=== PATIENT | male | born 1965 | race Caucasian/White ===

== ENCOUNTER 2024-09-05 22:39 | Observation (INO) ==
[2024-09-05 22:55] VITALS: BMI 19.3
--- NOTE | 2024-09-05 22:59 | DR.HTN ---
HPI Time Seen Time Seen by Provider: 09/05/24 22:58 Primary Care Physician Primary Care Physician: [email or web address] HPI Comment HPI Comment: History as below. Complaints Chief Complaint Doctors Comments: Patient is 59yr old male in ER with right upper extremity numbness that started Chief Complaint:: pt states" I went to sleep at work and was laying over on my rt arm it feels numb I can't hardly move it and my blood pressure is high" COVID-19 Coronavirus risk:travel/contact w/high risk person: No Has patient experienced Coronavirus symptoms: No Reviewed Nurses Notes Reviewed: Yes Source History Provided: Patient Mode of Arrival Mode of Arrival: Ambulatory Timing Onset of Chief Complaint: 09/05/24 Severity What was the maximum recorded B/P?: 201/104 Context Treatment of HTN Prior to Arrival: Taking meds as prescribed Associated Signs and Symptoms HTN Associated Signs and Symptoms: None PMH PMH Past Medical History: Yes Past Medical History: Hypertension Past Medical History Comment: chronic neck and back pain Past Surgical History: Yes Surgical History: Cholecystectomy Family History History of Family Medical Conditions: Yes Family Medical History: Coronary Artery Disease and Hypertension Social History Does patient currently use any type of tobacco product: Yes Have you used tobacco products in the last 12 months: Yes Type of Tobacco Use: Cigarettes Does any household member use tobacco: Yes Alcohol Use: Occasionally Do you use any recreational Drugs:: No Lives With: Family Lives Where: Home Travel Risk Coronavirus risk:travel/contact w/high risk person: No Has patient experienced Coronavirus symptoms: No Infectious screening In the last 2 months have you had wt loss of >10#?: NO Have you had fever, night sweats or hemotysis?: No Have you traveled outside the country in the last 6 months?: No Isolation: Standard ROS Review of Systems Constitutional: No Symptoms Reported Eyes: No Symptoms Reported ENTM: No Symptoms Reported Respiratoy: No Symptoms Reported Cardiovascular: No Symptoms Reported Gastrointestinal/Abdominal: No Symptoms Reported Genitourinary: No Symptoms Reported Neurological: No Symptoms Reported Musculoskeletal: No Symptoms Reported Integumentary: No Symptoms Reported Hematologic/Lymphatic: No Symptoms Reported Endocrine: No Symptoms Reported Psychiatric: No Symptoms Reported All Other Systems: Reviewed and Negative PE Vital Signs Vitals: Vital Signs Temperature 98.1 F Pulse Rate 81 Pulse Rate 85 Pulse Rate 84 Pulse Rate 82 Pulse Rate 93 Pulse Rate 93 Pulse Rate 92 Pulse Rate 91 Pulse Rate 90 Pulse Rate 89 Respiratory Rate 30 Respiratory Rate 15 Respiratory Rate 14 Respiratory Rate 19 Respiratory Rate 39 Respiratory Rate 27 Respiratory Rate 16 Respiratory Rate 17 Respiratory Rate 18 Blood Pressure 179/91 Blood Pressure 170/105 Blood Pressure 171/99 Blood Pressure 181/105 Blood Pressure 201/104 Blood Pressure 201/104 O2 Sat by Pulse Oximetry 95 O2 Sat by Pulse Oximetry 95 O2 Sat by Pulse Oximetry 95 O2 Sat by Pulse Oximetry 94 O2 Sat by Pulse Oximetry 95 O2 Sat by Pulse Oximetry 94 General Limitations: No Limitations General Appearance: Alert and In No Apparent Distress Head Head Exam: Normal Inspection Eyes Eye exam: Normal Appearance Pupils: Regular, Round: Bilateral ENT ENT Exam: Normal Exam and Normal Oropharynx Neck Neck Exam: Normal Inspection Chest Chest Inspection: Normal Inspection Respiratory Respiratory Exam: Normal Lung Sounds Bilat Respiratory Exam: Bilateral: Clear to Auscultation Cardiovascular Cardiovascular Exam: Regular Rate, Normal Rhythm and Normal Heart Sounds; negative Systolic Murmur or Diastolic Murmur Abdominal Exam Abdominal Exam: Normal Inspection, Normal Bowel Sounds and Soft; negative Tenderness Extremities Extremities Exam: Normal Inspection and Normal Capillary Refill Back Back Exam: Normal Inspection; negative (R) CVA Tenderness or (L) CVA Tenderness Neurologic Neurological Exam: Alert and Oriented X3; negative Motor Sensory Deficit Patient Oriented To: Person, Place and Time Speech: Fluid Speech Cranial Nerve Exam: EOM Function (II, III, IV, ): Normal, Facial Sensation (V): Normal, Facial Palsy (VII): Normal, Gag reflex (XI): Normal, Spinal Accessory Function (XI): Normal and Tongue Deviation: Normal Psychiatric Psychiatric Exam: Normal Affect and Normal Mood Skin Skin Exam: Warm and Intact MDM Differential Diagnosis Differential Diagnosis: Hypertensive emergency (Nerve Compression, CVA, TIA.) ROR Labs Reviewed 09/05/24 23:02 09/05/24 23:02 Laboratory: WBC 7.3 X10^3/uL (3.6-10.0) 09/05/24 23:02 RBC 3.78 X10^6/uL (4.7-6.0) L 09/05/24 23:02 Hgb 12.7 g/dL (13.5-18.0) L 09/05/24 23:02 Hct 36.1 % (42.0-54.0) L 09/05/24 23:02 MCV 95.3 fL (80.0-100.0) 09/05/24 23:02 MCH 33.6 pg (27.0-34.0) 09/05/24 23:02 MCHC 35.2 g/dL (33.0-35.0) H 09/05/24 23:02 RDW 14.0 % (11.6-16.5) 09/05/24 23:02 Plt Count 263 X10^3/uL (150.0-450.0) 09/05/24 23:02 MPV 7.6 fL (7.4-11.0) 09/05/24 23:02 Neut % (Auto) 67.4 % (42.0-75.0) 09/05/24 23:02 Lymph % (Auto) 16.5 % (21.0-51.0) L 09/05/24 23:02 [place] % (Auto) 10.6 % (0.0-13.0) 09/05/24 23:02 Eos % (Auto) 4.5 % (0.9-2.9) H 09/05/24 23:02 Baso % (Auto) 1.0 % (0.2-1.0) 09/05/24 23:02 Neut # (Auto) 4.9 x10^3/uL (2.2-4.8) H 09/05/24 23:02 Lymph # (Auto) 1.2 X10^3/uL (1.3-2.9) L 09/05/24 23:02 [place] # (Auto) 0.8 x10^3/uL (0.3-0.8) 09/05/24 23:02 Eos # (Auto) 0.3 x10^3/uL (0.0-0.2) H 09/05/24 23:02 Baso # (Auto) 0.1 X10^3/uL (0.0-0.1) 09/05/24 23:02 Absolute Nucleated RBC 0.0 /100WBC 09/05/24 23:02 PT 12.5 SECONDS (11.8-14.3) 09/05/24 23:02 INR Target Range - 09/05/24 23:02 INR 0.95 (0.8-1.3) 09/05/24 23:02 APTT 59.7 SECONDS (22.9-36.5) H 09/05/24 23:02 PTT Comment - 09/05/24 23:02 Fibrinogen 573 mg/dL (239-489) H 09/05/24 23:02 Sodium 141 mmol/L (136-145) 09/05/24 23:02 Corrected Sodium TNP 09/05/24 23:02 Potassium 3.7 mmol/L (3.5-5.1) 09/05/24 23:02 Chloride 100 mmol/L (98-107) 09/05/24 23:02 Carbon Dioxide 31.4 mmol/L (21-32) 09/05/24 23:02 BUN 16 mg/dL (7-18) 09/05/24 23:02 Creatinine 0.94 mg/dL (0.70-1.30) 09/05/24 23:02 Est GFR (MDRD) Af Amer > 60 (>60) 09/05/24 23:02 Est GFR (MDRD) Non-Af > 60 (>60) 09/05/24 23:02 Glucose 96 mg/dL (65-99) 09/05/24 23:02 POC Glucose (mg/dL) 99 mg/dL (65-99) 09/05/24 23:30 Calcium 9.9 mg/dL (8.5-10.1) 09/05/24 23:02 Corrected Calcium TNP 09/05/24 23:02 Total Bilirubin 0.40 mg/dL (0.2-1.0) 09/05/24 23:02 AST 23 Units/L (15-37) 09/05/24 23:02 ALT 24 Units/L (12-78) 09/05/24 23:02 Alkaline Phosphatase 112 Units/L (46-116) 09/05/24 23:02 Creatine Kinase 131 Units/L (39-308) 09/05/24 23:02 Troponin I High Sens 9.6 ng/L (4.0-60.0) 09/05/24 23:02 Total Protein 8.0 g/dL (6.4-8.2) 09/05/24 23:02 Albumin 3.8 g/dL (3.4-5.0) 09/05/24 23:02 Globulin 4.2 g/dL (2.5-4.5) 09/05/24 23:02 Albumin/Globulin Ratio 0.9 Ratio (1.1-2.1) L 09/05/24 23:02 Specimen Type Clean catch urine 09/05/24 22:55 Urine Color Straw (YELLOW) 09/05/24 22:55 Urine Appearance Clear (CLEAR) 09/05/24 22:55 Urine pH 6.5 (5.0 - 8.0) 09/05/24 22:55 Ur Specific [place] 1.010 (1.000-1.030) 09/05/24 22:55 Urine Protein Negative (NEGATIVE) 09/05/24 22:55 Urine Glucose (UA) Negative (NEGATIVE) 09/05/24 22:55 Urine Ketones Negative (NEGATIVE) 09/05/24 22:55 Urine Blood Negative (NEGATIVE) 09/05/24 22:55 Urine Nitrite Negative (NEGATIVE) 09/05/24 22:55 Urine Bilirubin Negative (NEGATIVE) 09/05/24 22:55 Urine Urobilinogen Normal (NORMAL) 09/05/24 22:55 Ur Leukocyte Esterase Negative (NEGATIVE) 09/05/24 22:55 Urine Opiates Screen Negative (NEG=<300) 09/05/24 22:55 Urine Methadone Screen Negative (NEG=<300) 09/05/24 22:55 Ur Barbiturates Screen Negative (NEG=<200) 09/05/24 22:55 Ur Phencyclidine Scrn Negative (NEG=<25) 09/05/24 22:55 Ur Amphetamines Screen Negative (NEG=<1000) 09/05/24 22:55 U Benzodiazepines Scrn Negative (NEG=<200) 09/05/24 22:55 Urine Cocaine Screen Negative (NEG=<300) 09/05/24 22:55 U Marijuana (THC) Screen Negative (NEG=<50) 09/05/24 22:55 Blood Type B NEGATIVE 09/05/24 23:44 Antibody Screen Negative 09/05/24 23:40 Opioid Opioid Risk Tool Age (Bill box if 16-45): No History of Preadolescent Sexual Abuse: No Total: 0 Total Score Risk Category: Low Risk Copyright: Bam ARNDT predicting aberrant behaviors Discharge Plan Diagnosis Discharge Problem: Brain TIA, Paresthesia of skin, Nerve root compression syndrome, Hypertension Discharge Plan Patient Disposition: ADMITTED INPATIENT Condition: Stable
[2024-09-05 23:14] LABS: BASOPHILS # (AUTO) 0.1 X10^3/uL (0.0-0.1); EOSINOPHILS # (AUTO) 0.3 x10^3/uL (0.0-0.2); EOSINOPHILS % (AUTO) 4.5 % (0.9-2.9); HEMATOCRIT 36.1 % (42.0-54.0); HEMOGLOBIN 12.7 g/dL (13.5-18.0); LYMPHOCYTES # (AUTO) 1.2 X10^3/uL (1.3-2.9); LYMPHOCYTES % (AUTO) 16.5 % (21.0-51.0); MEAN CORPUSCULAR HEMOGLOBIN 33.6 pg (27.0-34.0); MEAN CORPUSCULAR HGB CONC 35.2 g/dL (33.0-35.0); MEAN CORPUSCULAR VOLUME 95.3 fL (80.0-100.0); MEAN PLATELET VOLUME 7.6 fL (7.4-11.0); MONOCYTES # (AUTO) 0.8 x10^3/uL (0.3-0.8); MONOCYTES % (AUTO) 10.6 % (0.0-13.0); NEUTROPHILS # (AUTO) 4.9 x10^3/uL (2.2-4.8); NEUTROPHILS % (AUTO) 67.4 % (42.0-75.0); PLATELET COUNT 263 X10^3/uL (150.0-450.0); RED BLOOD COUNT 3.78 X10^6/uL (4.7-6.0); WHITE BLOOD COUNT 7.3 X10^3/uL (3.6-10.0)
[2024-09-05 23:20] LABS: APPEARANCE,URINE CLEAR (CLEAR); BILIRUBIN,URINE NEGATIVE (NEGATIVE); BLOOD/HEMOGLOBIN,URINE NEGATIVE (NEGATIVE); COLOR,URINE STRAW (YELLOW); GLUCOSE, URINE NEGATIVE (NEGATIVE); KETONES,URINE NEGATIVE (NEGATIVE); LEUKOCYTE ESTERASE ,URINE NEGATIVE (NEGATIVE); NITRITES,URINE NEGATIVE (NEGATIVE); PH,URINE 6.5 (5.0 - 8.0); PROTEIN,URINE NEGATIVE (NEGATIVE); UROBILINOGEN,URINE NORMAL (NORMAL)
[2024-09-05 23:27] LABS: INR 0.95 (0.8-1.3)
[2024-09-05 23:36] LABS: ALANINE AMINOTRANSFERASE 24 Units/L (12-78); ALBUMIN 3.8 g/dL (3.4-5.0); ALKALINE PHOSPHATASE 112 Units/L (46-116); ASPARTATE AMINO TRANSFERASE 23 Units/L (15-37); BLOOD UREA NITROGEN 16 mg/dL (7-18); CALCIUM 9.9 mg/dL (8.5-10.1); CARBON DIOXIDE 31.4 mmol/L (21-32); CHLORIDE 100 mmol/L (98-107); CREATINE KINASE 131 Units/L (39-308); CREATININE 0.94 mg/dL (0.70-1.30); GLUCOSE 96 mg/dL (65-99); POTASSIUM 3.7 mmol/L (3.5-5.1); SODIUM 141 mmol/L (136-145); eGFR NON BLACK RACES > 60 (>60)
--- NOTE | 2024-09-05 23:36 | CT ---
EXAM:BRAIN W/O CONHISTORY:ELEVATED BLOOD PRESSURE; STATES THAT THE PATIENT ISN'T TALKING NORMALCOMPARISON:None.TECHNIQUE:Axial non-contrast images of the head with coronal and sagittal reformats.Radiation dose: 870.14 mGy-cm total DLPFINDINGS:No abnormal areas of acute attenuation in the brain parenchyma.Higgins-white differentiation remains intact.No intracranial, extra-axial, fluid collection.No hemorrhage.No mass, mass effect or midline shift.No ventriculomegaly.No acute fracture.Sinuses are well aerated.Mastoid air cells are well aerated.Globes and intraorbital contents are unremarkable.IMPRESSION:No acute intracranial abnormality identified.THIS IS AN ELECTRONICALLY VERIFIED FINAL REPORT09/05/2024 11:33 PM - Electronically signed by Tano Gipson MD
--- NOTE | 2024-09-05 23:48 | EKG ---
Test Reason : elevated bp Blood Pressure : */* mmHG Vent. Rate : 90 BPM Atrial Rate : 90 BPM P-R Int : 150 ms QRS Dur : 92 ms QT Int : 354 ms P-R-T Axes : 66 59 58 degrees QTc Int : 433 ms Normal sinus rhythm Minimal voltage criteria for LVH, may be normal variant ( Sokolow-Peres ) Cannot rule out Anterior infarct , age undetermined Abnormal ECG No previous ECGs available Confirmed by Blake Groves MD ([id number]) on 09/06/2024 7:33:11 AM Referred By: Confirmed By: Blake Groves MD
--- NOTE | 2024-09-05 23:52 | TELESTROKE ---
[facility] Consult Date of Consult Date of Exam: 09/05/24 Time of Arrival to the ED: 23:30 Allergies Allergies Allergy/AdvReac Type Severity Reaction Status Date / Time COLLEEN Inhibitors Allergy Unknown Rash; Verified 01/01/24 08:42 Swelling; Hives Vital Signs Vital Signs: Temp Pulse Resp BP Pulse Ox O2 Del Method 09/05/24 22:40 98.1 F 89 18 201/104 94 L Room Air 09/03/24 13:37 161/111 History of Present Illness History of Present Illness: [facility] Patient Name:shahriar fong Date of :1965 Identification Number: Date of Service:09/05/2024 23:25:31 Diagnosis:R20.2 - Paresthesia of skin Impression: This consult was conducted in real-time using interactive audio and video technology. Patient was informed of the technology being used for this visit and agreed to proceed. Patient located in hospital and provider located at home/office setting. This is a 59 year old M with HTN who presents to [place], [place] for complaints of sensory decrease of right arm. The patient reported falling asleep in his car while at work at 19:30 earlier that evening (about 4 hours and 5 minutes ago), during which time he says he was was leaning with his right arm pressed against an object. He endorsed being in his usual state of health prior to falling asleep. Upon awakening the patient noted that his right arm felt heavy, numb, and difficult to move. However, he reported gradual improvement in these symptoms over time. At the time of my exam, he only has mild subjective tingling sensation in his right hand. The patient denied any issues with his leg or face and had no other complaints. On objective examination, the patient's NIHSS is 0. Of note, patient's blood pressure was elevated at 201/104 mmHg during his emergency department visit. with the localization to only arm, the slow improvement, and the report of sleeping against the arm, nerve compression (brachial plexus or other) is highly suggested. However, with his very high blood pressure, small stroke / resolving TIA is on the differential too. With his improvement of symptoms and minimal/no symptoms suspected to be nondisabling, he is not likely to be a strong tPA/TNK candidate. I had a discussion with the patient to gauge her thoughts on this. I had a discussion regarding thrombolytics (tPA/TNK). The risks, including possible hemorrhage and , and the possible benefits were discussed. he expressed understanding. He demonstrated good decision making capacity. He agreed that at this time his current symptoms are non-disabling or not disabling enough to want the possible risk of thrombolytics, especially in the setting of such rapid improvement, and opted instead for more conservative approach with additional testing etc, as below. Thrombolytics were not administered. Recommen dations below. Recommendations: Neuro Checks Head of Bed 30 Degrees Euglycemia and Avoid Hyperthermia (PRN Acetaminophen) Systolic BP cap <180 Aspirin 325 mg once now, then 81 mg daily for now. Atorvastatin 40 mg daily. Brain MRI without contrast (routine, diagnostic). If a small acute/subacute stroke is seen on MRI brain, without hemorrhage, also give 300 mg clopidogrel one time, followed by 21 days of clopidogrel 75 mg daily. If an acute or subacute embolic-appearing stroke (i.e. not lacunar) is se en on MRI brain, obtain TTE in hospital and Holter monitor on discharge. If no acute stroke is seen on MRI brain, or lacunar stroke is seen, these tests are not needed. HbA1C, Lipid Panel, TSH. Lifestyle Modifications: Weight management (goal healthy BMI), smoking cessation if smoker, Mediterranean diet, exercise (moderate intensive aerobic exercise at least 3 days of the week for 20-60 minutes at a time per AHA guidelines, or as tolerated), active lifestyle, outpatient goal normotension, outpatient goal LDL <70. PCP to assist with these modifications and goals. Advanced Imaging: CTA Deferred because: Current physical exam at the time of my assessment is not highly suggestive of an acute surgically intervenable large vessel occlusion. Should the physical exam worsen in the future, please reconsider advanced imaging and also urgently notify [facility], the neurology team, and/or call a new Stroke Alert. Metrics: Last Known Well: 09/05/2024 19:30:00 Dispatch Time: 09/05/2024 23:25:31 Arrival Time: 09/05/2024 22:58:00 Initial Response Time: 09/05/2024 23:28:45Symptoms: sensory decrease of right arm . Initial patient interaction: 09/05/2024 23:30:02 NIHSS Assessment Completed: 09/05/2024 23:36:00Patient is not a candidate for Thrombolytic. Thrombolytic Medical Decision: 09/05/2024 23:36:00Patient was not deemed candidate for Thrombolytic because of following reasons: Resolved symptoms . Stroke severity too mild (non-disabling) . I personally Reviewed the CT Head and it Showed no hemorrhage . Primary Provider Notified of Diagnostic Impression and Management Plan on: 09/05/2024 23:50:59 History of Present Illness:Patient is a 59 year old Male. Patient was brought by private transportation with symptoms of sensory decrease of right arm . This consult was conducted in real-time using interactive audio and video technology. Patient was informed of the technology being used for this visit and agreed to proceed. Patient located in hospital and provider located at home/office setting. This is a 59 year old M with HTN who presents to [place], [place] for complaints of sensory decrease of right arm. The patient reported falling asleep in his car while at work at 19:30 earlier that evening (about 4 hours and 5 minutes ago), during which time he says he was was leaning with his right arm pressed against an object. He endorsed being in his usual state of health prior to falling asleep. Upon awakening the patient noted that his right arm felt heavy, numb, and difficult to move. However, he reported gradual improvement in these symptoms over time. At the time of my exam, he only has mild subjective tingling sensation in his right hand. The patient denied any issues with his leg or face and had no other complaints. On objective examination, the patient's NIHSS is 0. Of note, patient's blood pressure was elevated at 201/104 mmHg during his emergency department visit. Past Medical History: Other PMH: HTN Medications: No Anticoagulant use No Antiplatelet use Reviewed EMR for current medications Allergies: Reviewed Social History: Drug Use: No Family History: There is no family history of premature cerebrovascular disease pertinent to this consultation ROS : 14 Points Review of Systems was performed and was negative except mentioned in HPI. Past Surgical History: There Is No Surgical History Contributory To Todays Visit Examination: BP(201/104),Pulse(75), 1A: Level of Consciousness - Alert; keenly responsive+ 0 1B: Ask Month and Age - Both Questions Right+ 0 1C: Blink Eyes & Squeeze Hands - Performs Both Tasks+ 0 2: Test Horizontal Extraocular Movements - Normal+ 0 3: Test Visual Moreno - No Visual Loss+ 0 4: Test Facial Palsy (Use Grimace if Obtunded) - Normal symmetry+ 0 5A: Test Left Arm Motor Drift - No Drift for 10 Seconds+ 0 5B: Test Right Arm Motor Drift - No Drift for 10 Seconds+ 0 6A: Test Left Leg Motor Drift - No Drift for 5 Seconds+ 0 6B: Test Right Leg Motor Drift - No Drift for 5 Seconds+ 0 7: Test Limb Ataxia (FNF/Heel-Powell) - No Ataxia+ 0 8: Test Sensation - Normal; No sensory loss+ 0 9: Test Language/Aphasia - Normal; No aphasia+ 0 10: Test Dysarthria - Normal+ 0 11: Test Extinction/Inattention - No abnormality+ 0 NIHSS Score:0 NIHSS Free Text :subjectively improving Pre-Morbid Modified Niels Scale:0 Points = No symptoms at all Spoke with :ed provider This consult was conducted in real time using interactive audio and video technology. Patient was informed of the technology being used for this visit and agreed to proceed. Patient located in hospital and provider located at [facility] e/office setting. Patient is being evaluated for possible acute neurologic impairment and high probability of imminent or life-threatening deterioration. I spent total of 45 minutes providing care to this patient, including time for face to face visit via telemedicine, review of medical records, imaging studies and discussion of findings with providers, the patient and/or family. Dr Alvin Cortez [facility] For Inpatient follow-up with [facility] physician please call [facility] at [phone]. As we are not an outpatient service for any post hospital discharge needs please contact the hospital for assistance. If you have any questions for the [facility] physicians or need to reconsult for clinical or diagnostic changes please contact us via [facility] at . Medical Decision Making 09/05/24 23:02 09/05/24 23:02 Labs: Laboratory Results - last 24 hr 09/05/24 09/05/24 09/05/24 22:55 23:02 23:30 WBC 7.3 RBC 3.78 L Hgb 12.7 L Hct 36.1 L MCV 95.3 MCH 33.6 MCHC 35.2 H RDW 14.0 Plt Count 263 MPV 7.6 Neut % (Auto) 67.4 Lymph % (Auto) 16.5 L [place] % (Auto) 10.6 Eos % (Auto) 4.5 H Baso % (Auto) 1.0 Neut # (Auto) 4.9 H Lymph # (Auto) 1.2 L [place] # (Auto) 0.8 Eos # (Auto) 0.3 H Baso # (Auto) 0.1 Absolute Nucleated RBC 0.0 PT 12.5 INR Target Range - INR 0.95 APTT 59.7 H PTT Comment - Fibrinogen 573 H Sodium 141 Corrected Sodium TNP Potassium 3.7 Chloride 100 Carbon Dioxide 31.4 BUN 16 Creatinine 0.94 Est GFR (MDRD) Af Amer > 60 Est GFR (MDRD) Non-Af > 60 Glucose 96 POC Glucose (mg/dL) 99 Calcium 9.9 Corrected Calcium TNP Total Bilirubin 0.40 AST 23 ALT 24 Alkaline Phosphatase 112 Creatine Kinase 131 Troponin I High Sens 9.6 Total Protein 8.0 Albumin 3.8 Globulin 4.2 Albumin/Globulin Ratio 0.9 L Specimen Type Clean catch urine Urine Color Straw Urine Appearance Clear Urine pH 6.5 Ur Specific [place] 1.010 Urine Protein Negative Urine Glucose (UA) Negative Urine Ketones Negative Urine Blood Negative Urine Nitrite Negative Urine Bilirubin Negative Urine Urobilinogen Normal Ur Leukocyte Esterase Negative Urine Opiates Screen Negative Urine Methadone Screen Negative Ur Barbiturates Screen Negative Ur Phencyclidine Scrn Negative Ur Amphetamines Screen Negative U Benzodiazepines Scrn Negative Urine Cocaine Screen Negative U Marijuana (THC) Screen Negative
[2024-09-05] MEDS ORDERED: APRESOLINE INJ 20 MG VIAL IVP ONE (23:58)
[2024-09-06] MEDS: ASPIRIN PO ONE (00:09)
[2024-09-06 03:17] LABS: TSH (3RD GENERATION) 0.81 uIU/mL (0.358-3.74)
[2024-09-06 03:23] LABS: HEMOGLOBIN A1C 5.5 %
[2024-09-06 05:43] LABS: BASOPHILS # (AUTO) 0.1 X10^3/uL (0.0-0.1); BASOPHILS % (AUTO) 1.6 % (0.2-1.0); EOSINOPHILS # (AUTO) 0.2 x10^3/uL (0.0-0.2); EOSINOPHILS % (AUTO) 3.4 % (0.9-2.9); HEMATOCRIT 33.7 % (42.0-54.0); HEMOGLOBIN 11.7 g/dL (13.5-18.0); LYMPHOCYTES # (AUTO) 1.2 X10^3/uL (1.3-2.9); LYMPHOCYTES % (AUTO) 21.8 % (21.0-51.0); MEAN CORPUSCULAR HEMOGLOBIN 33.4 pg (27.0-34.0); MEAN CORPUSCULAR HGB CONC 34.8 g/dL (33.0-35.0); MEAN PLATELET VOLUME 7.9 fL (7.4-11.0); MONOCYTES # (AUTO) 0.6 x10^3/uL (0.3-0.8); MONOCYTES % (AUTO) 11.4 % (0.0-13.0); NEUTROPHILS # (AUTO) 3.3 x10^3/uL (2.2-4.8); NEUTROPHILS % (AUTO) 61.8 % (42.0-75.0); PLATELET COUNT 257 X10^3/uL (150.0-450.0); RED BLOOD COUNT 3.51 X10^6/uL (4.7-6.0); RED CELL DISTRIBUTION WIDTH 13.9 % (11.6-16.5); WHITE BLOOD COUNT 5.4 X10^3/uL (3.6-10.0)
[2024-09-06 06:07] LABS: ALANINE AMINOTRANSFERASE 21 Units/L (12-78); ALBUMIN 3.4 g/dL (3.4-5.0); ALKALINE PHOSPHATASE 101 Units/L (46-116); ASPARTATE AMINO TRANSFERASE 21 Units/L (15-37); BLOOD UREA NITROGEN 14 mg/dL (7-18); CALCIUM 9.6 mg/dL (8.5-10.1); CARBON DIOXIDE 30.1 mmol/L (21-32); CHLORIDE 101 mmol/L (98-107); CHOL/HDL RATIO 2.6 (0.0-5.0); CHOLESTEROL 150 mg/dL (0-200); CREATININE 0.81 mg/dL (0.70-1.30); GLUCOSE 83 mg/dL (65-99); HDL CHOLESTEROL 58 mg/dL (40-60); MAGNESIUM 1.7 mg/dL (2.0-2.9); POTASSIUM 3.6 mmol/L (3.5-5.1); SODIUM 140 mmol/L (136-145); TOTAL PROTEIN 7.3 g/dL (6.4-8.2); TRIGLYCERIDES 37 mg/dL (0-150); eGFR NON BLACK RACES > 60 (>60)
[2024-09-06] MEDS ORDERED: CONSULT PHARMACY - POTASSIUM & MAGNESIUM XX SCH (07:00)
[2024-09-06] MEDS: NORCO 5/325 MG TAB PO PRN (07:43)
[2024-09-06] MEDS: LIPITOR TAB 40 MG PO SCH (08:29)
[2024-09-06] MEDS: K-DUR TAB 20 MEQ PO SCH (08:29)
[2024-09-06] MEDS: ASPIRIN EC 81 MG PO SCH (08:29)
[2024-09-06] MEDS: MAG-OX TAB PO SCH (08:29)
[2024-09-06] MEDS ORDERED: ASPIRIN PO SCH (09:00)
[2024-09-06] MEDS: PROCARDIA XL 24-HR PO SCH (10:07)
[2024-09-06] MEDS: TOPROL XL PO SCH (10:07)
[2024-09-06] MEDS: PROTONIX TAB 40 MG PO SCH (10:08)
[2024-09-06] MEDS: TOPROL XL PO ONE (11:24)
--- NOTE | 2024-09-06 11:40 | DR.H&P ---
H&P History & Physical for Day of: H&P Date: 09/06/24 Chief Complaint Chief Complaint: right arm weakness, nausea History of Present Illness History of Present Illness: Mr Gonzalez is a 59y/o male with a PMH of HTN, GERD and chronic pain presented with right arm weakness and numbness. His sx started last night around 8 pm after he woke up and noticed his right arm was weak. He did sleep on that arm. He was already having nausea prior to that. He does not check his BP but it tends to be elevated. Er work up included tele-stroke consult, CT- brain was negative. UA (-) UDS (-) Labs showed low K and Mag. His RUE weakness has improved. Neurology recommended MRI-brain and asa/statin. Patient was admitted for further management. 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 He does report right shoulder pain. Denies any falls. Labs/imaging reviewed: -WBC 5.4 Hgb 11.7 K 3.6 Mag 1.7 Cr 0.81 TSH/A1C/Lipid panel wnl -UA neg UDS neg -CT-brain: no acute changes Plan: admit to med surg with telemetry, continue asa/statin. MRI-brain pending. Continue neuro-checks. Order shoulder XR. Replace electrolytes as per protocol. Resume home medications. Monitor BP. Monitor AM labs/imaging. Past Medical History Past Medical History: Hypertension Past Surgical History Surgical History: Cholecystectomy Family History Family Medical History: Diabetes Mellitus, Cancer, [place] and Hypertension Social History Does patient currently use any type of tobacco product: Yes Have you used tobacco products in the last 12 months: Yes Type of Tobacco Use: Cigarettes How many years tobacco product used: 40 Does any household member use tobacco: No Alcohol Use: Rarely Drug Use: None Allergies Allergies Allergy/AdvReac Type Severity Reaction Status Date / Time COLLEEN Inhibitors Allergy Unknown Rash; Verified 01/01/24 08:42 Swelling; Hives Labs 09/06/24 05:00 09/06/24 05:00 Labs: Laboratory WBC 5.4 X10^3/uL (3.6-10.0) 09/06/24 05:00 RBC 3.51 X10^6/uL (4.7-6.0) L 09/06/24 05:00 Hgb 11.7 g/dL (13.5-18.0) L 09/06/24 05:00 Hct 33.7 % (42.0-54.0) L 09/06/24 05:00 MCV 96.0 fL (80.0-100.0) 09/06/24 05:00 MCH 33.4 pg (27.0-34.0) 09/06/24 05:00 MCHC 34.8 g/dL (33.0-35.0) 09/06/24 05:00 RDW 13.9 % (11.6-16.5) 09/06/24 05:00 Plt Count 257 X10^3/uL (150.0-450.0) 09/06/24 05:00 MPV 7.9 fL (7.4-11.0) 09/06/24 05:00 Neut % (Auto) 61.8 % (42.0-75.0) 09/06/24 05:00 Lymph % (Auto) 21.8 % (21.0-51.0) 09/06/24 05:00 [place] % (Auto) 11.4 % (0.0-13.0) 09/06/24 05:00 Eos % (Auto) 3.4 % (0.9-2.9) H 09/06/24 05:00 Baso % (Auto) 1.6 % (0.2-1.0) H 09/06/24 05:00 Neut # (Auto) 3.3 x10^3/uL (2.2-4.8) 09/06/24 05:00 Lymph # (Auto) 1.2 X10^3/uL (1.3-2.9) L 09/06/24 05:00 [place] # (Auto) 0.6 x10^3/uL (0.3-0.8) 09/06/24 05:00 Eos # (Auto) 0.2 x10^3/uL (0.0-0.2) 09/06/24 05:00 Baso # (Auto) 0.1 X10^3/uL (0.0-0.1) 09/06/24 05:00 Absolute Nucleated RBC 0.0 /100WBC 09/06/24 05:00 PT 12.5 SECONDS (11.8-14.3) 09/05/24 23:02 INR Target Range - 09/05/24 23:02 INR 0.95 (0.8-1.3) 09/05/24 23:02 APTT 59.7 SECONDS (22.9-36.5) H 09/05/24 23:02 PTT Comment - 09/05/24 23:02 Fibrinogen 573 mg/dL (239-489) H 09/05/24 23:02 Sodium 140 mmol/L (136-145) 09/06/24 05:00 Corrected Sodium TNP 09/06/24 05:00 Potassium 3.6 mmol/L (3.5-5.1) 09/06/24 05:00 Chloride 101 mmol/L (98-107) 09/06/24 05:00 Carbon Dioxide 30.1 mmol/L (21-32) 09/06/24 05:00 BUN 14 mg/dL (7-18) 09/06/24 05:00 Creatinine 0.81 mg/dL (0.70-1.30) 09/06/24 05:00 Est GFR (MDRD) Af Amer > 60 (>60) 09/06/24 05:00 Est GFR (MDRD) Non-Af > 60 (>60) 09/06/24 05:00 Glucose 83 mg/dL (65-99) 09/06/24 05:00 POC Glucose (mg/dL) 99 mg/dL (65-99) 09/05/24 23:30 Hemoglobin A1c 5.5 % 09/05/24 23:02 Calcium 9.6 mg/dL (8.5-10.1) 09/06/24 05:00 Corrected Calcium TNP 09/06/24 05:00 Magnesium 1.7 mg/dL (2.0-2.9) L 09/06/24 05:00 Total Bilirubin 0.30 mg/dL (0.2-1.0) 09/06/24 05:00 AST 21 Units/L (15-37) 09/06/24 05:00 ALT 21 Units/L (12-78) 09/06/24 05:00 Alkaline Phosphatase 101 Units/L (46-116) 09/06/24 05:00 Creatine Kinase 131 Units/L (39-308) 09/05/24 23:02 Troponin I High Sens 9.6 ng/L (4.0-60.0) 09/05/24 23:02 Total Protein 7.3 g/dL (6.4-8.2) 09/06/24 05:00 Albumin 3.4 g/dL (3.4-5.0) 09/06/24 05:00 Globulin 3.9 g/dL (2.5-4.5) 09/06/24 05:00 Albumin/Globulin Ratio 0.9 Ratio (1.1-2.1) L 09/06/24 05:00 Triglycerides 37 mg/dL (0-150) 09/06/24 05:00 Cholesterol 150 mg/dL (0-200) 09/06/24 05:00 LDL Cholesterol, Calc 85 mg/dL (0-100) 09/06/24 05:00 HDL Cholesterol 58 mg/dL (40-60) 09/06/24 05:00 Cholesterol/HDL Ratio 2.6 (0.0-5.0) 09/06/24 05:00 TSH 3rd Generation 0.810 uIU/mL (0.358-3.74) 09/05/24 23:02 Specimen Type Clean catch urine 09/05/24 22:55 Urine Color Straw (YELLOW) 09/05/24 22:55 Urine Appearance Clear (CLEAR) 09/05/24 22:55 Urine pH 6.5 (5.0 - 8.0) 09/05/24 22:55 Ur Specific [place] 1.010 (1.000-1.030) 09/05/24 22:55 Urine Protein Negative (NEGATIVE) 09/05/24 22:55 Urine Glucose (UA) Negative (NEGATIVE) 09/05/24 22:55 Urine Ketones Negative (NEGATIVE) 09/05/24 22:55 Urine Blood Negative (NEGATIVE) 09/05/24 22:55 Urine Nitrite Negative (NEGATIVE) 09/05/24 22:55 Urine Bilirubin Negative (NEGATIVE) 09/05/24 22:55 Urine Urobilinogen Normal (NORMAL) 09/05/24 22:55 Ur Leukocyte Esterase Negative (NEGATIVE) 09/05/24 22:55 Urine Opiates Screen Negative (NEG=<300) 09/05/24 22:55 Urine Methadone Screen Negative (NEG=<300) 09/05/24 22:55 Ur Barbiturates Screen Negative (NEG=<200) 09/05/24 22:55 Ur Phencyclidine Scrn Negative (NEG=<25) 09/05/24 22:55 Ur Amphetamines Screen Negative (NEG=<1000) 09/05/24 22:55 U Benzodiazepines Scrn Negative (NEG=<200) 09/05/24 22:55 Urine Cocaine Screen Negative (NEG=<300) 09/05/24 22:55 U Marijuana (THC) Screen Negative (NEG=<50) 09/05/24 22:55 Blood Type B NEGATIVE 09/05/24 23:44 Antibody Screen Negative 09/05/24 23:40 Review of Systems Constitutional: No Symptoms Reported Eyes: No Symptoms Reported ENT: No Symptoms Reported Respiratory: No Symptoms Reported Cardiovascular: No Symptoms Reported Gastrointestinal: Nausea Genitourinary: No Symptoms Reported Musculoskeletal: Shoulder Pain and Arm Pain Skin: No Symptoms Reported Neurological: No Symptoms Reported Physical Exam Vital Signs: Vital Signs Temperature 98.7 F Pulse Rate [Right Brachial] 81 Respiratory Rate 18 Respiratory Rate 18 Respiratory Rate 18 Blood Pressure [Right Arm] 176/92 O2 Sat by Pulse Oximetry 94 Oriented: Normal Eyes: Normal Ear: Normal Throat: Normal Respiratory: Clear Throughout Cardiovascular: Normal Auscultation: Bowel Sounds: Normal Palpation: Normal Tenderness: Normal Skin: Normal Musculoskeletal: Right, Shoulder, Arm and Motor Deficit Psychiatric: Normal Mood Description: Calm Affect: Normal Speech Pattern: Clear and Appropriate Assessment/Plan (1) Brain TIA: Status: Acute (2) Nerve root compression syndrome: Status: Acute (3) Hypomagnesemia: Status: Acute (4) Hypertension: Qualifiers: Hypertension type: primary hypertension Qualified Code(s): I10 - Essential (primary) hypertension Status: Chronic (5) Gastroesophageal reflux disease: Qualifiers: Esophagitis presence: esophagitis presence not specified Qualified Code(s): K21.9 - Gastro-esophageal reflux disease without esophagitis Status: Chronic (6) Multilevel degenerative disc disease: Status: Chronic Review H&P Reviewed: Yes Patient was examined?: Yes
[2024-09-06] MEDS: MAGNESIUM SULFATE 1 GRAM/100 mL PREMIX 1 G/100 ML BAG IV ONE (12:54)
--- NOTE | 2024-09-06 13:16 | RAD ---
PROCEDURE: Chest X-ray 1 View. HISTORY: ELEVATED BLOOD PRESSURE; . TECHNIQUE: AP view. COMPARISON: None . TECHNICAL QUALITY: Satisfactory. FINDINGS: Normal size heart. Mediastinum and hilar regions show no masses or lymphadenopathy. Normal central vascularity. No pulmonary consolidation, masses, pleural fluid, or pneumothorax. No acute bony abnormality. IMPRESSION: No evidence of active cardiopulmonary disease. THIS IS AN ELECTRONICALLY VERIFIED FINAL REPORT 09/06/2024 1:13 PM - Electronically signed by Allen Raya MD
[2024-09-06] MEDS: NICOTINE PATCH TD SCH (13:20)
[2024-09-07 06:02] LABS: BASOPHILS % (AUTO) 0.9 % (0.2-1.0); EOSINOPHILS # (AUTO) 0.2 x10^3/uL (0.0-0.2); HEMATOCRIT 33.9 % (42.0-54.0); HEMOGLOBIN 11.8 g/dL (13.5-18.0); LYMPHOCYTES # (AUTO) 1.3 X10^3/uL (1.3-2.9); LYMPHOCYTES % (AUTO) 26.6 % (21.0-51.0); MEAN CORPUSCULAR HEMOGLOBIN 33.3 pg (27.0-34.0); MEAN CORPUSCULAR HGB CONC 34.8 g/dL (33.0-35.0); MEAN CORPUSCULAR VOLUME 95.7 fL (80.0-100.0); MEAN PLATELET VOLUME 7.8 fL (7.4-11.0); MONOCYTES # (AUTO) 0.8 x10^3/uL (0.3-0.8); MONOCYTES % (AUTO) 16.1 % (0.0-13.0); NEUTROPHILS # (AUTO) 2.5 x10^3/uL (2.2-4.8); NEUTROPHILS % (AUTO) 51.4 % (42.0-75.0); PLATELET COUNT 263 X10^3/uL (150.0-450.0); RED BLOOD COUNT 3.54 X10^6/uL (4.7-6.0); RED CELL DISTRIBUTION WIDTH 13.8 % (11.6-16.5); WHITE BLOOD COUNT 4.9 X10^3/uL (3.6-10.0)
[2024-09-07 06:08] LABS: ALANINE AMINOTRANSFERASE 16 Units/L (12-78); ALBUMIN 3.2 g/dL (3.4-5.0); ALKALINE PHOSPHATASE 90 Units/L (46-116); ASPARTATE AMINO TRANSFERASE 19 Units/L (15-37); BLOOD UREA NITROGEN 17 mg/dL (7-18); CARBON DIOXIDE 30.3 mmol/L (21-32); CHLORIDE 103 mmol/L (98-107); COR CA(FOR HYPOALB) 9.6 mg/dL (8.5-10.1); CREATININE 0.83 mg/dL (0.70-1.30); GLUCOSE 92 mg/dL (65-99); MAGNESIUM 1.9 mg/dL (2.0-2.9); POTASSIUM 3.4 mmol/L (3.5-5.1); SODIUM 139 mmol/L (136-145); TOTAL PROTEIN 6.9 g/dL (6.4-8.2); eGFR NON BLACK RACES > 60 (>60)
[2024-09-07] MEDS ORDERED: CONSULT PHARMACY - POTASSIUM & MAGNESIUM XX SCH (07:00)
[2024-09-07] MEDS: K-DUR TAB 20 MEQ PO SCH (08:29)
[2024-09-07] MEDS: MAG-OX TAB PO SCH (08:30)
--- NOTE | 2024-09-07 09:04 | RAD ---
EXAM: SHOULDER, RIGHT HISTORY: RIGHT SHOULDER PAIN ; COMPARISON: None. TECHNIQUE: Right shoulder, 3 views FINDINGS: Normal acromioclavicular and glenohumeral alignment. No acute fracture or dislocation. No radiopaqu e foreign bodies. IMPRESSION: No acute osseous findings. THIS IS AN ELECTRONICALLY VERIFIED FINAL REPORT 09/07/2024 8:59 AM - Electronically signed by Oseas Weldon MD
[2024-09-07] MEDS: TOPROL XL PO ONE (10:41)
[2024-09-07 12:00] VITALS: BP 175/101; PULSE 71; RESP 21; TEMP 98; O2SAT 96
--- NOTE | 2024-09-07 12:08 | MRI ---
EXAM: BRAIN W/O CON HISTORY: TIA; COMPARISON: CT from September 05, 2024 TECHNIQUE: Multiplanar multi-sequence MRI of the brain was obtained utilizing standard departmental protocol. Sa gittal and axial T1 weighted images were obtained. Axial T2 and flair weighted images were performed as well. Axial diffusion weighted and ADC trace mapping was performed. FINDINGS: The midline structures appear unremarkable. The evaluation of the brain parenchyma demonstrates no ab normal signal characteristics to suggest intraparenchymal mass or hemorrhage. No extra-axial fluid co llections are observed. The ventricular system appears symmetric and nondilated. The CP angle is norm al in its appearance without brainstem mass or evidence for acoustic neuroma. The flow voids on both T1 and T2 weighted imaging appear unremarkable. Evaluation of the diffusion weighted imaging does not demonstrate abnormal signal characteristics to suggest acute ischemic change. The extracranial struc tures are unremarkable. IMPRESSION: Unremarkable MRI of the brain without contrast. THIS IS AN ELECTRONICALLY VERIFIED FINAL REPORT 09/07/2024 12:05 PM - Electronically signed by Kristian Iyer MD
[2024-09-07] MEDS ORDERED: PERCOCET TAB 5/325 MG PO PRN (14:30)
--- NOTE | 2024-09-08 12:16 | W.DIS.FURT ---
Summary of Discharge Discharge Summary of Date Date of Exam: 09/07/24 Admission Date Date of Admission: 09/05/24 Admission Diagnosis Patient Problems (Updated 09/06/24 @ 11:40 by Leonor Anthony MD) Brain TIA (Acute) G45.9 Paresthesia of skin (Acute) R20.2 Nerve root compression syndrome (Acute) G54.9 Hypertension (Chronic) I10 Hospital Course: Mr Gonzalez is a 59y/o male with a PMH of HTN, GERD and chronic pain presented with right arm weakness and numbness. His sx started last night around 8 pm after he woke up and noticed his right arm was weak. He did sleep on that arm. He was already having nausea prior to that. He does not check his BP but it tends to be elevated. Er work up included tele-stroke consult, CT-brain was negative. UA (-) UDS (-) Labs showed low K and Mag. His RUE weakness has improved. Neurology recommended MRI-brain and asa/statin. Patient was admitted for further management. 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 He does report right shoulder pain. Denies any falls. His labs were monitored and electrolytes replaced as needed. Brain MRI did not show any acute changes. Patient's right extremity weakness had resolved. He was ambulating in the room. His TSH, A1c and lipid panel were within normal limits. His shoulder x-ray did not show any acute changes. He was stable to be discharged home and follow-up with PCP. Vital Signs: Vital Signs (72 hours) 09/05/24 22:40 09/05/24 22:48 09/05/24 22:49 Temperature 98.1 F Pulse Rate 89 90 Pulse Rate [Right Brachial] Respiratory Rate 18 Blood Pressure 201/104 201/104 Blood Pressure [Left Arm] Blood Pressure [Right Arm] O2 Sat by Pulse Oximetry 94 L 95 Oxygen Delivery Method Room Air 09/05/24 23:00 09/05/24 23:00 09/05/24 23:06 Temperature Pulse Rate 91 H 92 H Pulse Rate [Right Brachial] Respiratory Rate 17 16 Blood Pressure 181/105 Blood Pressure [Left Arm] Blood Pressure [Right Arm] O2 Sat by Pulse Oximetry 94 L 95 Oxygen Delivery Method 09/05/24 23:06 09/05/24 23:10 09/05/24 23:10 Temperature Pulse Rate 93 H Pulse Rate [Right Brachial] Respiratory Rate 27 H Blood Pressure 171/99 170/105 Blood Pressure [Left Arm] Blood Pressure [Right Arm] O2 Sat by Pulse Oximetry 95 Oxygen Delivery Method 09/05/24 23:15 09/06/24 00:03 09/06/24 00:15 Temperature Pulse Rate 93 H 82 84 Pulse Rate [Right Brachial] Respiratory Rate 39 H 19 14 Blood Pressure Blood Pressure [Left Arm] Blood Pressure [Right Arm] O2 Sat by Pulse Oximetry 95 Oxygen Delivery Method 09/06/24 00:30 09/06/24 00:30 09/06/24 00:45 Temperature Pulse Rate 85 81 Pulse Rate [Right Brachial] Respiratory Rate 15 30 H Blood Pressure 179/91 Blood Pressure [Left Arm] Blood Pressure [Right Arm] O2 Sat by Pulse Oximetry Oxygen Delivery Method 09/06/24 01:00 09/06/24 01:00 09/06/24 01:15 Temperature Pulse Rate 77 83 Pulse Rate [Right Brachial] Respiratory Rate 17 15 Blood Pressure 141/83 Blood Pressure [Left Arm] Blood Pressure [Right Arm] O2 Sat by Pulse Oximetry Oxygen Delivery Method 09/06/24 01:30 09/06/24 01:30 09/06/24 01:51 Temperature Pulse Rate 84 Pulse Rate [Right Brachial] Respiratory Rate 27 H Blood Pressure 151/103 Blood Pressure [Left Arm] 151/90 Blood Pressure [Right Arm] O2 Sat by Pulse Oximetry Oxygen Delivery Method 09/06/24 03:00 09/06/24 03:23 09/06/24 01:50 Temperature 98.9 F Pulse Rate Pulse Rate [Right Brachial] 89 Respiratory Rate 18 Blood Pressure Blood Pressure [Left Arm] Blood Pressure [Right Arm] 167/103 O2 Sat by Pulse Oximetry 95 Oxygen Delivery Method Room Air Room Air Room Air 09/06/24 04:00 09/06/24 07:43 09/06/24 18:01 Temperature 98.7 F Pulse Rate Pulse Rate [Right Brachial] 81 Respiratory Rate 18 18 18 Blood Pressure Blood Pressure [Left Arm] Blood Pressure [Right Arm] 176/92 O2 Sat by Pulse Oximetry 94 L Oxygen Delivery Method Room Air 09/06/24 07:00 09/06/24 08:43 09/06/24 08:00 Temperature 98.8 F Pulse Rate Pulse Rate [Right Brachial] 74 Respiratory Rate 18 18 Blood Pressure Blood Pressure [Left Arm] Blood Pressure [Right Arm] 166/94 O2 Sat by Pulse Oximetry 94 L Oxygen Delivery Method Room Air Room Air 09/06/24 12:00 09/06/24 16:00 09/06/24 19:00 Temperature 97.8 F 98 F Pulse Rate Pulse Rate [Right Brachial] 67 80 Respiratory Rate 17 18 Blood Pressure Blood Pressure [Left Arm] Blood Pressure [Right Arm] 166/94 150/98 O2 Sat by Pulse Oximetry 97 97 Oxygen Delivery Method Room Air Room Air Room Air 09/06/24 20:00 09/06/24 19:01 09/07/24 00:00 Temperature 98.1 F 97.9 F Pulse Rate Pulse Rate [Right Brachial] 74 74 Respiratory Rate 18 20 18 Blood Pressure Blood Pressure [Left Arm] Blood Pressure [Right Arm] 137/84 159/89 O2 Sat by Pulse Oximetry 96 96 Oxygen Delivery Method Room Air 09/07/24 04:00 09/07/24 08:35 09/07/24 08:00 Temperature 97.9 F 98.4 F Pulse Rate Pulse Rate [Right Brachial] 63 74 Respiratory Rate 18 18 18 Blood Pressure Blood Pressure [Left Arm] Blood Pressure [Right Arm] 149/89 170/108 O2 Sat by Pulse Oximetry 96 95 Oxygen Delivery Method Room Air Room Air 09/07/24 07:00 09/07/24 09:35 09/07/24 12:00 Temperature 98 F Pulse Rate Pulse Rate [Right Brachial] 71 Respiratory Rate 18 21 Blood Pressure Blood Pressure [Left Arm] Blood Pressure [Right Arm] 175/101 O2 Sat by Pulse Oximetry 96 Oxygen Delivery Method Room Air Room Air Labs: Laboratory Last Values WBC 4.9 X10^3/uL (3.6-10.0) 09/07/24 05:24 RBC 3.54 X10^6/uL (4.7-6.0) L 09/07/24 05:24 Hgb 11.8 g/dL (13.5-18.0) L 09/07/24 05:24 Hct 33.9 % (42.0-54.0) L 09/07/24 05:24 MCV 95.7 fL (80.0-100.0) 09/07/24 05:24 MCH 33.3 pg (27.0-34.0) 09/07/24 05:24 MCHC 34.8 g/dL (33.0-35.0) 09/07/24 05:24 RDW 13.8 % (11.6-16.5) 09/07/24 05:24 Plt Count 263 X10^3/uL (150.0-450.0) 09/07/24 05:24 MPV 7.8 fL (7.4-11.0) 09/07/24 05:24 Neut % (Auto) 51.4 % (42.0-75.0) 09/07/24 05:24 Lymph % (Auto) 26.6 % (21.0-51.0) 09/07/24 05:24 [place] % (Auto) 16.1 % (0.0-13.0) H 09/07/24 05:24 Eos % (Auto) 5.0 % (0.9-2.9) H 09/07/24 05:24 Baso % (Auto) 0.9 % (0.2-1.0) 09/07/24 05:24 Neut # (Auto) 2.5 x10^3/uL (2.2-4.8) 09/07/24 05:24 Lymph # (Auto) 1.3 X10^3/uL (1.3-2.9) 09/07/24 05:24 [place] # (Auto) 0.8 x10^3/uL (0.3-0.8) 09/07/24 05:24 Eos # (Auto) 0.2 x10^3/uL (0.0-0.2) 09/07/24 05:24 Baso # (Auto) 0.0 X10^3/uL (0.0-0.1) 09/07/24 05:24 Absolute Nucleated RBC 0.0 /100WBC 09/07/24 05:24 PT 12.5 SECONDS (11.8-14.3) 09/05/24 23:02 INR Target Range - 09/05/24 23:02 INR 0.95 (0.8-1.3) 09/05/24 23:02 APTT 59.7 SECONDS (22.9-36.5) H 09/05/24 23:02 PTT Comment - 09/05/24 23:02 Fibrinogen 573 mg/dL (239-489) H 09/05/24 23:02 Sodium 139 mmol/L (136-145) 09/07/24 05:24 Corrected Sodium TNP 09/07/24 05:24 Potassium 3.4 mmol/L (3.5-5.1) L 09/07/24 05:24 Chloride 103 mmol/L (98-107) 09/07/24 05:24 Carbon Dioxide 30.3 mmol/L (21-32) 09/07/24 05:24 BUN 17 mg/dL (7-18) 09/07/24 05:24 Creatinine 0.83 mg/dL (0.70-1.30) 09/07/24 05:24 Est GFR (MDRD) Af Amer > 60 (>60) 09/07/24 05:24 Est GFR (MDRD) Non-Af > 60 (>60) 09/07/24 05:24 Glucose 92 mg/dL (65-99) 09/07/24 05:24 POC Glucose (mg/dL) 99 mg/dL (65-99) 09/05/24 23:30 Hemoglobin A1c 5.5 % 09/05/24 23:02 Calcium 9.0 mg/dL (8.5-10.1) 09/07/24 05:24 Corrected Calcium 9.6 mg/dL (8.5-10.1) 09/07/24 05:24 Magnesium 1.9 mg/dL (2.0-2.9) L 09/07/24 05:24 Total Bilirubin 0.30 mg/dL (0.2-1.0) 09/07/24 05:24 AST 19 Units/L (15-37) 09/07/24 05:24 ALT 16 Units/L (12-78) 09/07/24 05:24 Alkaline Phosphatase 90 Units/L (46-116) 09/07/24 05:24 Creatine Kinase 131 Units/L (39-308) 09/05/24 23:02 Troponin I High Sens 9.6 ng/L (4.0-60.0) 09/05/24 23:02 Total Protein 6.9 g/dL (6.4-8.2) 09/07/24 05:24 Albumin 3.2 g/dL (3.4-5.0) L 09/07/24 05:24 Globulin 3.7 g/dL (2.5-4.5) 09/07/24 05:24 Albumin/Globulin Ratio 0.9 Ratio (1.1-2.1) L 09/07/24 05:24 Triglycerides 37 mg/dL (0-150) 09/06/24 05:00 Cholesterol 150 mg/dL (0-200) 09/06/24 05:00 LDL Cholesterol, Calc 85 mg/dL (0-100) 09/06/24 05:00 HDL Cholesterol 58 mg/dL (40-60) 09/06/24 05:00 Cholesterol/HDL Ratio 2.6 (0.0-5.0) 09/06/24 05:00 TSH 3rd Generation 0.810 uIU/mL (0.358-3.74) 09/05/24 23:02 Specimen Type Clean catch urine 09/05/24 22:55 Urine Color Straw (YELLOW) 09/05/24 22:55 Urine Appearance Clear (CLEAR) 09/05/24 22:55 Urine pH 6.5 (5.0 - 8.0) 09/05/24 22:55 Ur Specific [place] 1.010 (1.000-1.030) 09/05/24 22:55 Urine Protein Negative (NEGATIVE) 09/05/24 22:55 Urine Glucose (UA) Negative (NEGATIVE) 09/05/24 22:55 Urine Ketones Negative (NEGATIVE) 09/05/24 22:55 Urine Blood Negative (NEGATIVE) 09/05/24 22:55 Urine Nitrite Negative (NEGATIVE) 09/05/24 22:55 Urine Bilirubin Negative (NEGATIVE) 09/05/24 22:55 Urine Urobilinogen Normal (NORMAL) 09/05/24 22:55 Ur Leukocyte Esterase Negative (NEGATIVE) 09/05/24 22:55 Urine Opiates Screen Negative (NEG=<300) 09/05/24 22:55 Urine Methadone Screen Negative (NEG=<300) 09/05/24 22:55 Ur Barbiturates Screen Negative (NEG=<200) 09/05/24 22:55 Ur Phencyclidine Scrn Negative (NEG=<25) 09/05/24 22:55 Ur Amphetamines Screen Negative (NEG=<1000) 09/05/24 22:55 U Benzodiazepines Scrn Negative (NEG=<200) 09/05/24 22:55 Urine Cocaine Screen Negative (NEG=<300) 09/05/24 22:55 U Marijuana (THC) Screen Negative (NEG=<50) 09/05/24 22:55 Blood Type B NEGATIVE 09/05/24 23:44 Antibody Screen Negative 09/05/24 23:40 Reason For Visit: BRAIN TIA/PARESTHESEAOF SKIN/HYPERTENSION/ Discharge Diagnosis All Active Problems (Updated 09/06/24 @ 11:40 by Leonor Anthony MD) Hypomagnesemia (Acute) Brain TIA (Acute) Paresthesia of skin (Acute) Nerve root compression syndrome (Acute) Hypertension (Chronic) Gastroesophageal reflux disease (Chronic) Multilevel degenerative disc disease (Chronic) Plan of Treatment: Continue with present treatment and follow up plan. Pt is to keep follow up appointment as instructed and take medications as ordered. Discharge Medications Discharge Medications: COLLEEN Inhibitors Allergy (Unknown, Verified 01/01/24 08:42) Rash; Swelling; Hives Discharge Disposition Discharge Disposition: To home Discharge Condition: Stable Discharge Plan Discharge Plan Hospital Course: Mr Gonzalez is a 59y/o male with a PMH of HTN, GERD and chronic pain presented with right arm weakness and numbness. His sx started last night around 8 pm after he woke up and noticed his right arm was weak. He did sleep on that arm. He was already having nausea prior to that. He does not check his BP but it tends to be elevated. Er work up included tele-stroke consult, CT-brain was negative. UA (-) UDS (-) Labs showed low K and Mag. His RUE weakness has improved. Neurology recommended MRI-brain and asa/statin. Patient was admitted for further management. 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 He does report right shoulder pain. Denies any falls. His labs were monitored and electrolytes replaced as needed. Brain MRI did not show any acute changes. Patient's right extremity weakness had resolved. He was ambulating in the room. His TSH, A1c and lipid panel were within normal limits. His shoulder x-ray did not show any acute changes. He was stable to be discharged home and follow-up with PCP. Patient Disposition: 01 HOME, SELF-CARE Condition: Stable Health Concerns: Post Hospitalization: new medications and changes needed to prevent readmission or further decline. Pt educated and given instructions on all concerns. Care Plan Goals: Problem: Altered Tissue Perfusion Goal: Adequate Tissue Perfusion Instructions: Follow provided instructions. Follow up with primary physician as directed. Contact primary care physician or report to the closest Emergency Room if condition worsens. Plan of Treatment: Continue with present treatment and follow up plan. Pt is to keep follow up appointment as instructed and take medications as ordered. Prescriptions: Continued oxycodone-acetaminophen 10-325 mg tablet 1 tab PO TID MDD 3 PRN (Reason: pain) 30 Days Qty: 90 0RF Rx Instructions: FreeTextSi (one) Tablet three times daily, as needed; Refills: 0; Provider: Khanh Carbone metoprolol succinate 100 mg tablet extended release 24 hr 100 mg PO QDAY Qty: 30 2RF nifedipine 90 mg tablet extended release 90 mg PO QDAY Qty: 30 3RF pantoprazole 40 mg tablet,delayed release (DR/EC) 40 mg PO QDAY 30 Days Qty: 30 3RF Rx Instructions: FreeTextSi Tablet daily; Refills: 3; Provider: Khanh Carbone Orders to Discharge Patient Discharge Orders: Discharge (Routine); Ordered 09/07/24 Ordered By: Leonor Anthony Follow ups/Referrals Follow ups/Referrals: Raf Cassidy MD [Primary Care Provider] - 09/15/24 1:30 pm Instructions Instructions: Steps to Quit Smoking, [id number], Stroke Prevention, Hypomagnesemia, Transient Ischemic Attack, [id number], Managing Your Hypertension, Paresthesia, [id number] Activity Restrictions/Additional Instructions: Monitor and keep a log of blood pressure. Stand Alone Forms: Excuse From Work or School, Find Help Web Site, Post Hospital Follow Up Care
== END 2024-09-07 13:35 | disposition home or self-care (01) ==
LOC: MED/SURG 22:39 → ER 22:39 → MED/SURG 09-06 01:52
PROVIDERS: ADMIT Internal Medicine; ATTEND Family Medicine
DX: R20.2 Paresthesia of skin; R11.0 Nausea; E87.6 Hypokalemia; M62.81 Muscle weakness (generalized); M25.511 Pain in right shoulder; E83.42 Hypomagnesemia; Z91.81 History of falling; R94.31 Abnormal electrocardiogram [ECG] [EKG]; K21.9 Gastro-esophageal reflux disease without esophagitis; Z72.0 Tobacco use; G45.9 Transient cerebral ischemic attack, unspecified; G54.9 Nerve root and plexus disorder, unspecified; R79.1 Abnormal coagulation profile; I10 Essential (primary) hypertension